=== PATIENT | male | born 2000 | race Caucasian/White ===

== ENCOUNTER 2024-04-10 22:12 | Emergency (ER) | payer OTHER ==
[2024-04-10] MEDS ORDERED: NS 1,000 ML IV SCH (22:30)
[2024-04-10 22:31] LABS: BASO # 0.04 K/mm3 (0.02-0.10); EOS # 0.08 K/mm3 (0.04-0.40); EOS % 1.5 % (0.0-4.0); HEMATOCRIT 43.2 % (42.0-52.0); HEMOGLOBIN 14.3 g/dL (13.5-18.0); LYMPH# 1.81 K/mm3 (1.50-4.00); MEAN CELL VOLUME 91 fl (78-100); MEAN CORPUSCULAR HEMOGLOBIN 30 pg (27-31); MEAN CORPUSCULAR HGB CONC 33 g/dL (33-37); MEAN PLATELET VOLUME 10.7 fl (7.4-10.4); MONO # 0.25 K/mm3 (0.20-0.80); NEU # 3.06 K/mm3 (1.40-6.50); PLATELET COUNT 171 K/mm3 (130-400); RED BLOOD COUNT 4.75 M/mm3 (4.20-5.60); RED CELL DISTRIBUTION WIDTH 12.7 % (11.5-14.5); WHITE BLOOD COUNT 5.3 K/mm3 (4.8-10.8)
[2024-04-10 22:38] LABS: ALBUMIN 4.6 g/dL (3.5-5.0)
[2024-04-10 22:39] LABS: CALCIUM 8.7 mg/dL (8.3-10.5)
[2024-04-10 22:41] LABS: TOTAL PROTEIN 6.9 g/dL (6.4-8.3)
[2024-04-10 22:42] LABS: TOTAL BILIRUBIN 0.4 mg/dL (0.2-1.2)
[2024-04-10] MEDS ORDERED: NS & 20mEq KCl 1,000 ML IV SCH (23:30)
[2024-04-11 02:45] VITALS: BP 110/78
== END 2024-04-11 02:45 | disposition left against medical advice (07) ==
LOC: ED 22:12
PROVIDERS: Nurse Practitioner Family
DX: F10.129 Alcohol abuse with intoxication, unspecified (principal)
CPT/HCPCS: J3480; J7030